=== PATIENT | male | born 1950 | race Caucasian/White ===

== ENCOUNTER 2020-02-26 10:04 | Inpatient (IN) | payer OTHER ==
[2020-02-26] VITALS (30 sets, daily range): BP systolic 78–125; BP diastolic 28–77
[~2020-02-26] VITALS: Ht 188 cm; Wt 75.3 kg
[~2020-02-26 10:04] MED LIST: ALTACE 1.25 M1.25 M1 PO; ALTACE2.5 MG PO; AMIODARONE HCL100 MG PO; AMITRIPTYLINE H10 M3 PO; AMITRIPTYLINE H25 M2 PO; APAP500 PO; ARICEPT10 M1 PO; ATORVASTATIN CA20 MG PO; CELEXA40 MG PO; CLARITIN10 MG PO; COUMADIN7.5 MG PO; FUROSEMIDE 20 M20 M1 PO; FUROSEMIDE 20 M20 MG PO; IRON325 PO; LANOXIN 0.250.25 M1 PO; LOPRESSOR25 PO; OMEPRAZOLE 20 M20 M1 PO; PACERONE 200 M200 M1 PO; SALINE NASAL M126 ML NS; SOTALOL80 MG PO; TOPROL XL50 MG PO; VITAMINC500 PO; ZOLOFT100 MG PO
[2020-02-26 10:32] LABS: HEMATOCRIT 38.9 % (42.0-52.0); HEMOGLOBIN 11.4 gm/dL (14.0-18.0); MCH 28.1 pg (26.0-34.0); MCHC 29.3 g/dL (28.0-37.0); MCV 95.9 fL (80.0-100.0); PLATELET COUNT 476 thou/uL (150-400); RBC 4.06 mil/uL (4.50-6.00); RDW 16.7 % (10.5-14.5); WBC 20.2 thou/uL (4.0-11.0)
[2020-02-26 10:45] LABS: APTT 42.2 Seconds (24.5-32.8); INR 3.4; PROTIME 35.3 Seconds (9.3-11.4)
[2020-02-26 10:46] LABS: BE(vivo) -11.5 mmol/L (-2 to +3); HCO3 19.4 mmol/L (22.0-26.0); PO2 199.1 mmHg (80.0-100.0); sO2 98.8 % (92.0-98.0)
[2020-02-26 10:47] LABS: PCO2 70.6 mmHg (35.0-45.0); pH 7.057 (7.360-7.450)
[2020-02-26 10:52] LABS: ALBUMIN 2.4 g/dL (3.4-5.0); CALCIUM 10.8 mg/dL (8.5-10.1); CREATININE 1.2 mg/dL (0.7-1.3); DIRECT BILIRUBIN 0.7 mg/dL (<0.1-0.2); TOTAL BILIRUBIN 1.6 mg/dL (0.2-1.0); TOTAL PROTEIN 7.1 g/dL (6.4-8.2); TROPONIN-I 0.45 ng/mL (<0.06)
[2020-02-26 10:53] LABS: POTASSIUM 2.5 mmol/L (3.5-5.1)
[2020-02-26] MEDS ORDERED: OXYCODONE HCL5 MG PO (10:53)
[2020-02-26] MEDS ORDERED: VITAMIN C1000 MG PO (10:53)
[2020-02-26] MEDS ORDERED: VENTOLIN HFA 1818 GM INH (10:53)
[2020-02-26] MEDS ORDERED: ARICEPT10 M1 PO (10:54)
[2020-02-26] MEDS ORDERED: FUROSEMIDE 40 M40 M1 PO (10:54)
[2020-02-26] MEDS ORDERED: LIPITOR 20 MG T20 M1 PO (10:54)
[2020-02-26] MEDS ORDERED: ALBUTEROL2.5 MG/31 INH (10:54)
[2020-02-26] MEDS ORDERED: SENNA PLUS TAB1 EACH PO (10:55)
[2020-02-26] MEDS ORDERED: KLOR-CON M2020 MEQ PO (10:55)
[2020-02-26] MEDS ORDERED: SINGULAIR 10 MG10 MG PO (10:55)
[2020-02-26] MEDS ORDERED: DALIRESP500 MCG PO (10:55)
[2020-02-26] MEDS ORDERED: OMEPRAZOLE 20 M20 M1 PO (10:55)
[2020-02-26] MEDS ORDERED: COUMADIN6 MG PO (10:56)
[2020-02-26] MEDS ORDERED: ZOLOFT 50 MG TA50 MG PO (10:56)
[2020-02-26] MEDS ORDERED: ACETAMINOPHEN325 M1 PO (10:56)
[2020-02-26] MEDS ORDERED: MIDODRINE HCL 55 M1 PO (10:56)
[2020-02-26] MEDS ORDERED: TRELEGY ELLIPT1 EACH INH (10:56)
[2020-02-26] MEDS ORDERED: BUSPIRONE HCL5 MG PO (10:57)
[2020-02-26] MEDS ORDERED: MILK OF MA400 MG/5 M PO (10:57)
[2020-02-26] MEDS ORDERED: MELATONIN3 M1 PO (10:57)
[2020-02-26 11:00] LABS: ABSOLUTE NEUTROPHILS 15.8 thou/uL (1.4-8.2); METAMYELOCYTES 1 %; MYELOCYTES 1 %; NUCLEATED RBCS 2 /100WBC
[2020-02-26 11:01] LABS: ANISOCYTOSIS 1+
[2020-02-26 13:45] LABS: BE(vivo) -6.2 mmol/L (-2 to +3); HCO3 22.3 mmol/L (22.0-26.0); PCO2 58.4 mmHg (35.0-45.0); PO2 71.4 mmHg (80.0-100.0); sO2 90.3 % (92.0-98.0)
[2020-02-26 14:09] LABS: CREATININE 1.2 mg/dL (0.7-1.3); MAGNESIUM 1.8 mg/dL (1.8-2.4)
[2020-02-26 14:15] LABS: CALCIUM 8.6 mg/dL (8.5-10.1); POTASSIUM 5.4 mmol/L (3.5-5.1)
[2020-02-26 15:02] LABS: CALCIUM 8.7 mg/dL (8.5-10.1); CREATININE 1.4 mg/dL (0.7-1.3)
[2020-02-26 15:09] LABS: FIBRINOGEN 407.4 mg/dL (210-360)
[2020-02-26 15:16] LABS: D-DIMER 32.48 ug/mLFEU (0.19-0.50)
[2020-02-26 16:56] LABS: BE(vivo) -4.8 mmol/L (-2 to +3); HCO3 24.6 mmol/L (22.0-26.0); PO2 66.2 mmHg (80.0-100.0); sO2 87.1 % (92.0-98.0)
[2020-02-26 16:57] LABS: PCO2 68.1 mmHg (35.0-45.0); pH 7.175 (7.360-7.450)
[2020-02-26 18:41] LABS: HEMATOCRIT 33.9 % (42.0-52.0); HEMOGLOBIN 10.2 gm/dL (14.0-18.0); MCH 27.2 pg (26.0-34.0); MCHC 30.1 g/dL (28.0-37.0); RBC 3.76 mil/uL (4.50-6.00); RDW 16.2 % (10.5-14.5)
[2020-02-26 18:47] LABS: MCV 90.1 fL (80.0-100.0); WBC 44.6 thou/uL (4.0-11.0)
[2020-02-26 18:48] LABS: PLATELET COUNT 646 thou/uL (150-400)
--- NOTE | 2020-02-26 18:54 | 2DMMODE ---
[place] [address] [place] [address] 2 D/M-MODE ECHOCARDIOGRAM Name: THA ARNOLD Room #: 240-P ADM IN M.R.#: [id number] Admission: 02/26/20 Attend Phys: Suzy Waddell MD Discharge: Date of : 50 Report #: [id number] THIS REPORT FOR: cc: Bethel Isabel MD, Ramilo MD Mancuso, Gerald M. MD [facility] ~ APPROVED REPORT Study performed: 02/26/2020 14:11:34 EXAM: Comprehensive 2D, Doppler, and color-flow Echocardiogram Patient Location: ER Room #: 12 Status: stat BSA: 1.96 HR: 69 bpm BP: 99/46 mmHg Rhythm: NSR Other Information Study Quality: Adequate Indications COPD Cardiac arrest 2D Dimensions IVC: 22.00 mm Aortic Valve AoV Peak Jabier.: 2.50 m/s AO Peak Gr.: 0.17 mmHg AO Mean Gr.: 14.41 mmHg AO V2 Mean: 1.67 m/s AO V2 VTI: 44.82 cm Tricuspid Valve TR Peak Jabier.: 3.20 m/s TR Peak Gr.: 41.04 mmHg PA Pressure: 51.00 mmHg Left Ventricle The left ventricle is normal size. There is mild global hypokinesis of the left ventricle. There is normal left ventricular wall [facility] [employer] [place] [address] 2 D/M-MODE ECHOCARDIOGRAM Name: THA ARNOLD Room #: 240-P ADM IN M.R.#: [id number] Admission: 02/26/20 Attend Phys: Mario Cortez Discharge: Date of : 50 Report #: [id number] thickness. Left ventricular systolic function is mildly decreased. LVEF is 45%. This study is not technically sufficient to allow evaluation of the LV diastolic function. Right Ventricle The right ventricle is normal size. The right ventricular systolic function is normal. Pacemaker lead is present in the right ventricle. Atria Left atrium is dilated. Right atrium is at the upper limits of normal. Pacemaker lead is present in the right atrium. Aortic Valve Mechanical aortic valve is present. No aortic regurgitation is present. Mitral Valve The mitral valve is normal in structure. Annuloplasty ring is noted in the mitral position. Moderate to severe mitral regurgitation No evidence of mitral valve stenosis. Tricuspid Valve The tricuspid valve is normal in structure. There is mild tricuspid regurgitation. Estimated PAP 51 mmHg. There is moderate pulmonary hypertension. Pulmonic Valve The pulmonary valve is normal in structure. There is no pulmonic valvular regurgitation. Great Vessels The aortic root is normal in size. IVC is dilated and collapses >50% with inspiration. Pericardium There is no pericardial effusion. <Conclusion> The left ventricle is normal size. There is mild global hypokinesis of the left ventricle. LVEF is 45%. This study is not technically sufficient to allow evaluation of the LV diastolic function. Pacemaker lead is present in the right ventricle. The right ventricular systolic function is normal. Left atrium is dilated. [facility] [address] [place] [address] 2 D/M-MODE ECHOCARDIOGRAM Name: THA ARNOLD Room #: 240-P ADM IN M.R.#: [id number] Admission: 02/26/20 Attend Phys: Mario Cortez Discharge: Date of : 50 Report #: [id number] Right atrium is at the upper limits of normal. Pacemaker lead is present in the right atrium. Mechanical aortic valve is present. No aortic regurgitation is present. Moderate to severe mitral regurgitation There is mild tricuspid regurgitation. Estimated PAP 51 mmHg. There is moderate pulmonary hypertension. The aortic root is normal in size. IVC is dilated and collapses >50% with inspiration. There is no pericardial effusion. <ELECTRONICALLY SIGNED> By: Arcadio Stoner MD, FACC 02/26/201853 53 53 Arcadio Stoner MD, FACC /INF
[2020-02-26 18:59] LABS: CALCIUM 8.4 mg/dL (8.5-10.1); CREATININE 1.5 mg/dL (0.7-1.3); MAGNESIUM 1.6 mg/dL (1.8-2.4)
[2020-02-26 19:00] LABS: TROPONIN-I 9.23 ng/mL (<0.06)
[2020-02-26 19:01] LABS: POTASSIUM 2.4 mmol/L (3.5-5.1)
[2020-02-26 19:06] LABS: ANISOCYTOSIS 2+
[2020-02-26 19:07] LABS: HYPOCHROMASIA 1+
[2020-02-26 19:08] LABS: POLYCHROMASIA OCCASIONAL
[2020-02-26 20:07] LABS: PO2 128.9 mmHg (80.0-100.0); sO2 97.8 % (92.0-98.0)
[2020-02-26 20:08] LABS: PCO2 69.2 mmHg (35.0-45.0); pH 7.209 (7.360-7.450)
[2020-02-27] VITALS (92 sets, daily range): BP systolic 70–174; BP diastolic 23–124
[2020-02-27 01:18] LABS: HEMOGLOBIN 10.2 gm/dL (14.0-18.0); MCV 90.6 fL (80.0-100.0)
[2020-02-27 01:21] LABS: HEMATOCRIT 33.4 % (42.0-52.0); MCH 27.8 pg (26.0-34.0); MCHC 30.7 g/dL (28.0-37.0); PLATELET COUNT 584 thou/uL (150-400); RBC 3.68 mil/uL (4.50-6.00)
[2020-02-27 01:22] LABS: WBC 46.8 thou/uL (4.0-11.0)
[2020-02-27 01:25] LABS: CALCIUM 8.2 mg/dL (8.5-10.1); CREATININE 1.7 mg/dL (0.7-1.3); MAGNESIUM 2.4 mg/dL (1.8-2.4)
[2020-02-27 01:40] LABS: POTASSIUM 2.7 mmol/L (3.5-5.1)
[2020-02-27 01:56] LABS: ABSOLUTE NEUTROPHILS 46.3 thou/uL (1.4-8.2); ANISOCYTOSIS 1+
[2020-02-27 05:26] LABS: BE(vivo) -4.5 mmol/L (-2 to +3); HCO3 21.2 mmol/L (22.0-26.0); PCO2 41.2 mmHg (35.0-45.0); PO2 210.5 mmHg (80.0-100.0); sO2 99.3 % (92.0-98.0)
[2020-02-27 05:27] LABS: pH 7.329 (7.360-7.450)
[2020-02-27 06:14] LABS: HEMATOCRIT 32.8 % (42.0-52.0); HEMOGLOBIN 10.1 gm/dL (14.0-18.0); MCH 27.7 pg (26.0-34.0); MCHC 30.9 g/dL (28.0-37.0); MCV 89.6 fL (80.0-100.0); PLATELET COUNT 549 thou/uL (150-400); RBC 3.66 mil/uL (4.50-6.00); RDW 16.1 % (10.5-14.5)
[2020-02-27 06:18] LABS: WBC 47.2 thou/uL (4.0-11.0)
[2020-02-27 06:29] LABS: ALBUMIN 2.1 g/dL (3.4-5.0); CALCIUM 8.2 mg/dL (8.5-10.1); CREATININE 1.8 mg/dL (0.7-1.3); TOTAL PROTEIN 6.2 g/dL (6.4-8.2)
[2020-02-27 07:35] LABS: ABSOLUTE NEUTROPHILS 44.4 thou/uL (1.4-8.2); METAMYELOCYTES 1 %; PLATELET ESTIMATE INCREASED
[2020-02-27 12:05] LABS: ABSOLUTE NEUTROPHILS 39.5 thou/uL (1.4-8.2); BASOPHILS 0.4 % (0.0-2.0); HEMATOCRIT 31.6 % (42.0-52.0); LYMPHOCYTES 1.5 % (24.0-44.0); MCH 27.9 pg (26.0-34.0); MCHC 31.8 g/dL (28.0-37.0); MCV 87.9 fL (80.0-100.0); MONOCYTES 2.8 % (1.0-8.0); POLYS 95.3 % (36.0-66.0)
[2020-02-27 12:07] LABS: PLATELET COUNT 465 thou/uL (150-400)
[2020-02-27 12:10] LABS: WBC 41.4 thou/uL (4.0-11.0)
[2020-02-27 12:12] LABS: CALCIUM 8.5 mg/dL (8.5-10.1); CREATININE 1.6 mg/dL (0.7-1.3)
--- NOTE | 2020-02-27 17:20 | HC ---
[facility] [place] [place] [place] [address] CONSULTATION Name: THA ARNOLD Room #: 240-P ADM IN M.R.#: [id number] Admission: 02/26/20 Attend Phys: Suzy Waddell MD Discharge: Date of : 50 Report #: [id number] THIS REPORT FOR: cc: Bethel Isabel MD,Daniel Newell MD, MD ~ CC: Suzy Isabel DATE OF SERVICE: 02/27/2020 INFECTIOUS DISEASE CONSULTATION ATTENDING PHYSICIAN: Dr. Waddell. REASON FOR EVALUATION: Marked leukocytosis in patient that had cardiac arrest requiring resuscitation and now is experiencing multiorgan dysfunction. HISTORY OF PRESENT ILLNESS: The patient was examined. This is a 69-year-old gentleman with known history of Parkinson's disease who apparently was found unresponsive, initiated resuscitative measures including CPR, was revived and was brought to the Emergency Room, where he did have a second cardiopulmonary arrest and again is successful. He is seen in the Intensive Care Unit. He is maintained on ventilatory support. Of note, he was hospitalized within the last 3 weeks on the facility. At that time, he had fallen and had multiple rib fractures. He did have apparently pneumothorax, required a chest tube. As per the initial evaluation, he was found to have white count at 20. He has since increased now to 47,000. It is noted to have laboratory evidence of multiorgan dysfunction. Coronavirus testing was initially negative. Repeat is pending. He started empirically on combination therapy with ____ tazobactam as well as vancomycin. ALLERGIES: None known. CURRENT MEDICINES: Include norepinephrine, propofol, vancomycin, famotidine, methylprednisolone, vasopressin, ipratropium and albuterol inhaler. PAST MEDICAL HISTORY: History of Parkinson's. Does have a known history of cardiomyopathy with congestive heart failure. Does have a pacemaker, history of COPD, reflux, hyperlipidemia and prosthetic heart valve. SOCIAL HISTORY: Unknown. FAMILY HISTORY: Unknown. REVIEW OF SYSTEMS: Unobtainable. [facility] [address] [place] [address] CONSULTATION Name: THA ARNOLD Room #: 240-P [facility] IN M.R.#: [id number] Admission: 02/26/20 Attend Phys: Suzy Waddell MD Discharge: Date of : 50 Report #: [id number] PHYSICAL EXAMINATION: GENERAL: He is maintained on ventilatory support. He is nonresponsive at this point. His eyes are open, although there is no evidence of any reflex. VITAL SIGNS: Temperature 91.4 as he is undergoing cooling protocol, pulse 73, respirations 24, blood pressure is 126/67. SKIN: Cool to the touch. HEENT: ET, OG tube in place. LUNGS: Few scattered coarse breath sounds. HEART: Paced, regular, may have a systolic murmur. He has got a vest on. ABDOMEN: Soft. There are no apparent peritoneal signs. EXTREMITIES: Distal lower extremities actually fairly warm to touch and there is some lower extremity apparatus as part of the cooling protocol. LABORATORY AND X-RAY DATA: Initial ABGs: pH 7.057, pCO2 of 70.6, pO2 of 199.1 and that was on 100%, repeats on 80%. This morning pH 7.329, pCO2 of 41.2, pO2 of 210.5. Electrolytes: Sodium 140, potassium 3.0, chloride 100, bicarbonate 24, anion gap of 16. BUN and creatinine 24 and 1.8 and that is up initially from 1.2. Calcium 8.2, ALT of 124. AST of 230. Albumin of 2.1. Lactic acid 10.0 this morning. CBC: White count of 47.2, H and H 10.1 and 32.8, platelets of 549. He did have 20% bands. ASSESSMENT AND PLAN: Status post cardiopulmonary arrest presumably from a cardiac issue. Certainly ____ exclude an aspiration pneumonitis, this is a complication. White count could represent simply reactive process and I would suspect multifactorial etiology. We will continue empiric broad-spectrum therapy. We will adjust dosing to avoid the toxicity with combination of vancomycin and Zosyn. He will check an ultrasound of the abdomen to exclude a potential occult process there with a markedly elevated white count, tends to be a preferred site ____ to that level and he is critically ill and it is not entirely clear. Suspected prognosis is quite guarded. We will follow. <ELECTRONICALLY SIGNED> By: Daniel Gomez MD 02/27/20 1720 1009 1040 Daniel Gomez MD /nt
[2020-02-27 17:36] LABS: PROTIME 107.5 Seconds (9.3-11.4)
[2020-02-27 17:40] LABS: INR 10.4
[2020-02-28] VITALS (43 sets, daily range): BP systolic 85–131; BP diastolic 39–72
[2020-02-28 02:07] LABS: GLYCOHEMOGLOBIN (HGB A1C) 4.7 % (4.8-5.6)
[2020-02-28 05:48] LABS: BE(vivo) 4.8 mmol/L (-2 to +3); PCO2 31.3 mmHg (35.0-45.0); pH 7.553 (7.360-7.450); sO2 98.1 % (92.0-98.0)
[2020-02-28 06:27] LABS: HEMATOCRIT 30.1 % (42.0-52.0); HEMOGLOBIN 9.6 gm/dL (14.0-18.0); MCH 27.9 pg (26.0-34.0); MCV 87.2 fL (80.0-100.0); RBC 3.45 mil/uL (4.50-6.00); RDW 16.4 % (10.5-14.5); WBC 30.5 thou/uL (4.0-11.0)
[2020-02-28 06:39] LABS: CALCIUM 8.4 mg/dL (8.5-10.1); CREATININE 1.9 mg/dL (0.7-1.3); POTASSIUM 3.1 mmol/L (3.5-5.1)
--- NOTE | 2020-02-28 07:42 | EKG ---
[facility] [place] [address] [place] [address] ELECTROCARDIOGRAM REPORT Name: THA ARNOLD Room #: 240-P ADM IN M.R.#: [id number] Admission: 02/26/20 Attend Phys: Suzy Waddell MD Discharge: Date of : 50 Report #: [id number] THIS REPORT FOR: cc: Bethel Isabel MD, Ramilo MD Lundgren,Shaan Bell MD [facility] ~ THIS REPORT FOR: //name// [facility] ED Test Date: 2020-02-26 Test Time: 10:50:33 Pat Name: THA ARNOLD Department: Room: 240 Gender: M Ultrasound Technician: YECENIA BONNER : 1950 Requested By: Promise Camargo Order Number: [id number] MD: Shaan Carrion Measurements Intervals [place] Rate: 90 P: RI: QRS: 265 QRSD: 172 T: -90 QT: 549 QTc: 672 Interpretive Statements Afib/flut and V-paced complexes No further analysis attempted due to paced rhythm No previous ECG available for comparison Electronically Signed On 02-28-2020 7:42:01 CDT by Shaan Carrion [email or web address] <ELECTRONICALLY SIGNED> By: Shaan Carrion MD, [facility] 02/28/20 0742 1050 1050 Shaan Carrion MD, [facility] /EPI
--- NOTE | 2020-02-28 08:01 | HC ---
[facility] [address] [place] [address] CONSULTATION Name: THA ARNOLD Room #: 240-P ADM IN M.R.#: [id number] Admission: 02/26/20 Attend Phys: Suzy Waddell MD Discharge: Date of : 50 Report #: [id number] THIS REPORT FOR: cc: Bethel Isabel MD,Arcadio Kerns MD, MD [facility] ~ CC: Suzy Isabel DATE OF SERVICE: 02/26/2020 CARDIOLOGY CONSULT HISTORY OF PRESENT ILLNESS: The patient is a 69-year-old male who I was asked to see in the ICU. Apparently he had an rll-rl-grkxphjd arrest. He was at [facility] after a long hospitalization at [facility]. We do not have much in the way those records, but apparently was living independently with Parkinson's and generalized debilitation, fall and multiple rib fractures leading to that hospitalization. Obviously, some complications after a month, he went to [facility] and I think he has recently been there. Apparently he was found down in his room at [facility], was last noted at 1/2 hour originally after meds have been passed. It looks like he has a sequential pacemaker on the echo. He has hypothermia, has multiple rounds of CPR and medications. He is intubated. He has a mechanical aortic valve and is anticoagulated. His INR is 3.4. He was ruled out for COVID at [facility] but being ruled out again since he came from a facility. I am not able to obtain much about cardiac history, except for the pacemaker. He has hypotension and he initially attempted to use some dopamine, but irregular rhythm, not a Levophed low dose and pressure had been 100. It looks like he is predominantly paced in the range of 90. The troponin came back at 9, but multiple rounds of CPR not surprising. The echo shows an ejection fraction in the 45% range, somewhat global without acceptable gradient across the prosthetic aortic valve. LABORATORY DATA: Troponin initially was 0.45. His BNP was 4200. Potassium is low and they are trying to replace, but still low at 2.5. Creatinine 1.2. H and H 11 and 38, white count 20.2. DIAGNOSTIC DATA: Chest x-ray: Cardiomegaly, bilateral pulmonary infiltrates. CT scan: No acute intracranial hemorrhage, parenchymal loss generalized. SOCIAL HISTORY: Apparently, he had lived alone independently. He has 2 daughters. PAST MEDICAL HISTORY: Positive for the prosthetic aortic valve, some progressive dementia, Parkinson's. I suspect underlying COPD, permanent pacemaker, AV sequential reflux, peripheral vascular disease, questionable [facility] [address] [place] [address] CONSULTATION Name: THA ARNOLD Room #: 240-[facility] IN M.R.#: [id number] Admission: 02/26/20 Attend Phys: Suzy Waddell MD Discharge: Date of : 50 Report #: [id number] history of heart failure in the past. FAMILY HISTORY: Not obtainable. PHYSICAL EXAMINATION: GENERAL: He is sedated. VITAL SIGNS: Pulse currently is 80s intermittently, it looks to be paced. Blood pressure is 94 systolic, on low dose Levophed. HEENT: Pharynx is intubated. Dry mucous membranes. There are no xanthelasmas. NECK: Shows somewhat preserved upstrokes. LUNGS: Coarse sounds, significant retraction is noted with the ventilator inspiration. EXTREMITIES: Reveal trace of edema. Distal pulses are diminished. NEUROLOGIC: Not obtainable due to his current state, status post arrest prolonged and now just minimal propofol, some subtle contracture of the left hand. ASSESSMENT: 1. Pcj-oz-ujcydjza facility arrest with multiple rounds of CPR, intubation and medications. 2. Elevated troponin, I suspect secondary to above. 3. Mild idiopathic cardiomyopathy with EF 45% on an abbreviated echo in the Emergency Room with an acceptable gradient across the prosthetic aortic valve. 4. Prosthetic mechanical aortic valve. 5. Suspect underlying chronic obstructive pulmonary disease. 6. Elevated white count, lactic acidosis, possible sepsis. RECOMMENDATIONS AND PLAN: 1. Some IV fluids have been given. We will replace these. 2. Hypokalemia, up above. 3. We will need to have significant potassium replacement, may have contributed to this arrest. I do not perceive it to be ischemic. It would be helpful to interrogate the device at some point. Levophed for pressor support. Apparently, there has been some discussion with the family, the 2 daughters at length at least short term to try these measures. I should note, he has no known drug allergies. We will follow with you. Thank you for asking me to assist in the care of this patient. <ELECTRONICALLY SIGNED> By: Arcadio Stoner MD, FACC 02/28/20 08 22 02 Arcadio Stoner MD, FACC /nt
[2020-02-28 10:40] LABS: PROTIME 109.5 Seconds (9.3-11.4)
[2020-02-28 10:42] LABS: INR 10.6
--- NOTE | 2020-02-28 10:46 | HC ---
[facility] [place] [address] [place] [address] CONSULTATION Name: THA ARNOLD Room #: 240-P ADM IN M.R.#: [id number] Admission: 02/26/20 Attend Phys: Suzy Waddell MD Discharge: Date of : 50 Report #: [id number] THIS REPORT FOR: cc: Bethel Isabel MD,Georgi Lantigua MD, MD ~ CC: Suzy Isabel DATE OF SERVICE: 02/27/2020 ENDOCRINE CONSULTATION CONSULTING PHYSICIAN: Dr. Peterson. REASON FOR CONSULTATION: Hyperglycemia. HISTORY OF PRESENT ILLNESS: This is a 69-year-old male patient who was admitted following having been found unresponsive and after having undergone CPR and resuscitation with multiple shocks by EMS. The patient was intubated on arrival and had to be resuscitated further with one round of epinephrine, after which his pulse was restored. At the time of my interview with the patient, he was intubated and sedated and my history is heavily obtained from medical staff as well as his medical records. It appears that the patient's background is noted for COPD, prostatic heart valve, congestive heart failure, GERD, dementia, Parkinson's disease. The patient is currently requiring a high level of support including with pressors as well as continued mechanical ventilation. The current management also involved the utilization of high dose glucocorticoid therapy. The patient's medical records do not directly indicate that he had been diagnosed with type 2 diabetes mellitus in the past and it does not appear that he is on any form of antidiabetic therapy on a routine basis. Furthermore, the patient has hyperlipidemia and is maintained on atorvastatin 20 mg daily. REVIEW OF SYSTEMS: Cannot be obtained at this point in time as the patient is intubated and sedated, unable to interact. PAST MEDICAL HISTORY: 1. Parkinson's disease. 2. Dementia. 3. Hyperlipidemia. 4. Osteoarthritis. [facility] [address] [place] [address] CONSULTATION Name: THA ARNOLD Room #: 240-P [facility] IN .R.#: [id number] Admission: 02/26/20 Attend Phys: Suzy Waddell MD Discharge: Date of : 50 Report #: [id number] 5. GERD. 6. Congestive heart failure. 7. COPD. 8. Prosthetic heart valve. 9. Osteoarthritis. OUTPATIENT MEDICATIONS: Include: 1. Oxycodone p.r.n. 2. Ventolin HFA q. 6 hours p.r.n. 3. Vitamin C 1000 mg daily. 4. Atorvastatin (Lipitor) 20 mg daily. 5. Aricept daily. 6. Furosemide 60 mg b.i.d. 7. Singulair 10 mg daily. 8. Omeprazole 20 mg daily. 9. KCl daily. 10. Daliresp 500 mcg daily. 11. Senna b.i.d. 12. Sertraline 50 mg daily. 13. Coumadin 6 mg daily. 14. Midodrine 5 mg p.o. t.i.d. 15. Tylenol regular strength. 16. Buspirone 5 mg p.o. t.i.d. 17. Milk of magnesia. 18. Melatonin. ALLERGIES: No known drug allergies. SOCIAL HISTORY: No record of tobacco, alcohol or illicit drug use. It appears that the patient was discharged from [facility] recently. PHYSICAL EXAMINATION: GENERAL: male patient who is intubated and sedated, not responsive. VITAL SIGNS: Blood pressure is 126/67 mmHg, heart rate is 73 beats per minute, respirations 24 per minute, temperature 33.3 degrees Celsius. CONSTITUTIONAL: The patient is lying in bed, appears pale, sedated. HEENT: Anicteric sclerae. NECK: Supple, no thyromegaly. CHEST: Noted for limited air entry bilaterally with scattered rales. HEART: Regular rate and rhythm with slow ejection murmur. ABDOMEN: Soft, lax. No guarding. Sluggish bowel sounds. EXTREMITIES: Lower extremity exam edema. NEUROLOGIC: Intubated, sedated. PSYCHIATRIC: Intubated, sedated. LABORATORY DATA: Blood glucose on arrival was 88 mg/dL. As per the staff's [address] [address] CONSULTATION Name: THA ARNOLD Room #: 240-P [facility] IN M.R.#: [id number] Admission: 02/26/20 Attend Phys: Suzy Waddell MD Discharge: Date of : 50 Report #: [id number] report, it appears that it has gone as high as 230 mg/dL. Otherwise, sodium 138, potassium 3.0, chloride 98, CO2 of 28, anion gap 12, BUN 26, creatinine 1.6, glucose before this dictation 199, AST 230, total bilirubin 2.0, direct bilirubin 0.7, calcium 8.5, magnesium 2.0, alkaline phosphatase 122, ALT 124, total protein 6.2, albumin 2.1, EGFR 43. Lactic acid 7.7. Troponin 9.23, triglycerides 70. BNP 5316. INR 3.4. White blood count 41.4, hemoglobin 10, hematocrit 31.6, platelets 465. ASSESSMENT AND PLAN: 1. Hyperglycemia. As noted above, the patient was recorded as having hyperglycemia despite the absence of documentation of type 2 diabetes mellitus or active therapeutics in this regard. It is feasible that the patient might have mild hyperglycemia to begin with and under the current circumstances of severe stress, and high dose steroid therapy that we are seeing an augmentation of this issue. I would like to seek a better understanding of his overall state by obtaining a hemoglobin A1c. In the meantime, the patient is maintained on a Humalog supplemental scale low intensity and I would like to maintain the same while we monitor his blood glucose values routinely every 6 hours. Should he continue to need a routine support with a scale, I will quickly transition to the inclusion of her basal insulin as well. My short term goal for the patient would be in the vicinity of 140-180 mg/dL. 2. Respiratory failure. The patient is currently mechanically ventilated post his cardiac arrest. Dr. Aguilar is following. 3. Hypotension. The patient has suffered severe hypertension and hypertensive injury likely due to liver, kidney as well as with elevated lactic acid. He is currently on multiple pressors including Levophed and phenylephrine. Cardiology is following. 4. Hypothermia. The patient is hypothermic, which could very well be explained on the basis of his multiple issues on presentation. I would like to add a TSH and free T4 levels to his assessment to figure if this was in any way contributing to this outlook. I certainly appreciate the opportunity to participate in the care of Dr. Peterson's patients. <ELECTRONICALLY SIGNED> By: Georgi Yee MD 02/28/20 1046 1357 1421 Georgi Yee MD /dileep
[2020-02-29] VITALS (52 sets, daily range): BP systolic 71–134; BP diastolic 25–72
[2020-02-29 05:13] LABS: PROTIME 111.9 Seconds (9.3-11.4)
[2020-02-29 05:16] LABS: INR 10.9
[2020-03-01] VITALS (78 sets, daily range): BP systolic 98–132; BP diastolic 41–71
[2020-03-01 05:10] LABS: BE(vivo) -1.1 mmol/L (-2 to +3); HCO3 19.4 mmol/L (22.0-26.0); PO2 95.9 mmHg (80.0-100.0); pH 7.579 (7.360-7.450); sO2 98.3 % (92.0-98.0)
[2020-03-01 05:12] LABS: PCO2 21.2 mmHg (35.0-45.0)
[2020-03-01 06:01] LABS: HEMATOCRIT 29.1 % (42.0-52.0); HEMOGLOBIN 9.5 gm/dL (14.0-18.0); MCH 28.3 pg (26.0-34.0); MCHC 32.5 g/dL (28.0-37.0); RBC 3.35 mil/uL (4.50-6.00); RDW 16.5 % (10.5-14.5)
[2020-03-01 06:09] LABS: PLATELET COUNT 267 thou/uL (150-400)
[2020-03-01 07:14] LABS: ALBUMIN 2.1 g/dL (3.4-5.0); POTASSIUM 4.7 mmol/L (3.5-5.1); TOTAL BILIRUBIN 2.4 mg/dL (0.2-1.0); TOTAL PROTEIN 6.4 g/dL (6.4-8.2)
[2020-03-01 08:45] LABS: ABSOLUTE NEUTROPHILS 21.6 thou/uL (1.4-8.2); ATYPICAL LYMPHS 1 %; POIKILOCYTOSIS SLIGHT
[2020-03-01 08:46] LABS: ANISOCYTOSIS 1+; HYPOCHROMASIA SLIGHT; LARGE PLATELETS OCCASIONAL
[2020-03-01 08:53] LABS: CREATININE 3.7 mg/dL (0.7-1.3)
[2020-03-01 09:25] LABS: INR 6.1; PROTIME 62.9 Seconds (9.3-11.4)
[2020-03-02] VITALS (59 sets, daily range): BP systolic 83–127; BP diastolic 46–68
--- NOTE | 2020-03-02 17:37 | EEG ---
[facility] [address] ELECTROENCEPHALOGRAM Name: THA ARNOLD Room #: 240-P [facility] IN M.R.#: [id number] Admission: 02/26/20 Attend Phys: Suzy Waddell MD Discharge: Date of : 50 Report #: [id number] THIS REPORT FOR: //name// CC: Suzy Hugo [facility] DATE OF SERVICE: 02/29/2020 This patient is being evaluated for hypoxic encephalopathy. EEG was done by placing the electrode by standard 10-20 system of electrode placement. Both referential and sequential montages were used for recording. Background activity is difficult to tell because a lot of artifact is present. It appeared to be suppressed. It is about 5 Hz and 10 microvolts. There is what appeared to be muscle artifact present in the left side, especially in the frontal temporal area. Photic stimulation is unremarkable. IMPRESSION: This is an abnormal EEG because it is disorganized and poorly formed. There is a nonspecific abnormality, which can occur with encephalopathy, effect of psychotropic medication, dementia, etc. The activity in the left frontotemporal leads is probably artifact because of muscle twitching but the possibility of seizures cannot be fully excluded. Thank you very much for this referral. <ELECTRONICALLY SIGNED> By: Oscar Beasley MD 03/02/20 1737 1522 1529 Oscar Beasley MD /nt
== END 2020-03-02 20:02 | DRG 870 ==
LOC: ER 10:04 → EROBS 13:22 → ICU 13:22
PROVIDERS: Emergency Medicine; Internal Medicine; Internal Medicine Pulmonary Disease; Nurse Practitioner Adult Health; Pediatrics; ADMIT Hospitalist; ATTEND Hospitalist
DX: A41.9 Sepsis, unspecified organism (principal); G93.41 Metabolic encephalopathy; J69.0 Pneumonitis due to inhalation of food and vomit; J96.21 Acute and chronic respiratory failure with hypoxia; J96.22 Acute and chronic respiratory failure with hypercapnia; K72.00 Acute and subacute hepatic failure without coma; I42.8 Other cardiomyopathies; G93.1 Anoxic brain damage, not elsewhere classified; N17.9 Acute kidney failure, unspecified; J44.1 Chronic obstructive pulmonary disease with (acute) exacerbation; I46.9 Cardiac arrest, cause unspecified; G20 Parkinson's disease; F02.80 Dementia in other diseases classified elsewhere, unspecified severity, without behavioral disturbance, psychotic disturbance, mood disturbance, and anxiety; I73.9 Peripheral vascular disease, unspecified; I50.9 Heart failure, unspecified; E78.5 Hyperlipidemia, unspecified; K21.9 Gastro-esophageal reflux disease without esophagitis; R73.9 Hyperglycemia, unspecified; I95.9 Hypotension, unspecified; T68.XXXA Hypothermia, initial encounter; I49.01 Ventricular fibrillation; E87.6 Hypokalemia; R74.0 Nonspecific elevation of levels of transaminase and lactic acid dehydrogenase [LDH]; Z20.828 Contact with and (suspected) exposure to other viral communicable diseases; D64.89 Other specified anemias; Z66 Do not resuscitate; Z51.5 Encounter for palliative care; E87.8 Other disorders of electrolyte and fluid balance, not elsewhere classified; Z79.01 Long term (current) use of anticoagulants; Z95.0 Presence of cardiac pacemaker; Z95.2 Presence of prosthetic heart valve
CPT/HCPCS: 10078; 10203; 27000